=== PATIENT | male | born 1970 | race Caucasian/White ===

== ENCOUNTER 2024-07-20 06:25 | Day surgery (SDC) | payer OTHER, SELFPAY | END 2024-07-20 11:33 | disposition home or self-care (01) | LOC: GI 06:25 | PROVIDERS: ATTENDING PHYSICIAN Specialist | DX: Z12.11 Encounter for screening for malignant neoplasm of colon (principal); K63.5 Polyp of colon; K57.30 Diverticulosis of large intestine without perforation or abscess without bleeding; Z86.0101 Personal history of adenomatous and serrated colon polyps | CPT/HCPCS: 45380; 88305 ==